=== PATIENT | female | born 1990 | race Caucasian/White ===

== ENCOUNTER 2021-07-30 15:34 | Emergency (ER) | payer BC, OTHER ==
[2021-07-30] MEDS ORDERED: Sodium Chloride 0.9% 1,000 ML IV ONE (15:50)
[2021-07-30] MEDS ORDERED: Ondansetron 4 MG/2 ML SDV IVPUSH ONE (15:50)
[2021-07-30 16:29] LABS: CHLORIDE,CL 103 mmol/L (98-107); SODIUM,NA 140 mmol/L (136-145)
[2021-07-30] MEDS ORDERED: Ondansetron 4 MG Tab.DIS PO ONE (17:08)
== END 2021-07-30 17:20 | disposition home or self-care (01) ==
LOC: KA.ED 15:34
DX: A08.4 Viral intestinal infection, unspecified (principal); R11.2 Nausea with vomiting, unspecified; Z87.891 Personal history of nicotine dependence; Z88.5 Allergy status to narcotic agent
CPT/HCPCS: 36415; 80053; 85025; 96361; 96374; 99283; 99284-25; J2405; J7030